=== PATIENT | female | born 1995 | race American Indian/Alaskan Native ===

== ENCOUNTER 2019-03-03 09:53 | Emergency (ER) | payer MEDICAID ==
[2019-03-03] MEDS ORDERED: DUONEB *Not for PRN Use IH ONE (09:58)
[2019-03-03 10:02] VITALS: BP 135/79
[2019-03-03] MEDS ORDERED: SOLU-Medrol IM ONE (10:19)
--- NOTE | 2019-03-03 10:21 | Emergency Department Report ---
ED Asthma HPI - General Chief Complaint: Dyspnea/Respdistress Stated Complaint: SOB/BACK PAIN Time Seen by Provider: 03/03/19 10:16 Source: patient Mode of arrival: Ambulatory Limitations: No Limitations - History of Present Illness Initial Comments: Patient is 23 years old female with history of asthma. Patient presented with shortness of breath, cough and wheezing since yesterday. Patient stated that she is out of her asthma medication since the last time she had asthma attack was 3 years ago. Patient stated that symptoms started with runny nose cough and congestion. Patient denied any fever or chills. No chest pain. MD Complaint: "asthma attack", shortness of breath, wheezing - Related Data Allergies Allergy/AdvReac Type Severity Reaction Status Date / Time No Known Allergies Allergy Verified 03/03/19 09:57 ED Review of Systems ROS: Stated complaint: SOB/BACK PAIN Other details as noted in HPI Comment: All other systems reviewed and negative Constitutional: denies: chills, fever ENT: congestion Respiratory: cough, shortness of breath, wheezing Cardiovascular: denies: chest pain Gastrointestinal: denies: nausea, vomiting ED Past Medical Hx - Past Medical History Previous Medical History?: Yes Hx Asthma: Yes - Surgical History Past Surgical History?: Yes Additional Surgical History: c section - Social History Smoking Status: Never Smoker Substance Use Type: None ED Physical Exam - General Limitations: No Limitations General appearance: alert, in no apparent distress - Head Head exam: Present: atraumatic, normocephalic, normal inspection - Eye Eye exam: Present: normal appearance - ENT ENT exam: Present: normal exam, normal orophraynx, mucous membranes moist - Neck Neck exam: Present: normal inspection - Respiratory Respiratory exam: Present: wheezes, rhonchi. Absent: respiratory distress, rales, stridor, chest wall tenderness, accessory muscle use, decreased breath sounds, prolonged expiratory - Cardiovascular Cardiovascular Exam: Present: normal heart sounds - GI/Abdominal GI/Abdominal exam: Present: soft. Absent: distended, tenderness, guarding, rebound, rigid - Extremities Exam Extremities exam: Present: normal inspection. Absent: pedal edema, calf tenderness - Neurological Exam Neurological exam: Present: alert, oriented X3, CN II-XII intact, normal gait, reflexes normal - Skin Skin exam: Present: warm, intact, normal color ED Course Vital Signs 03/03/19 10:00 Temperature 98.4 F Pulse Rate 111 H Respiratory 16 Rate Blood Pressure 135/79 [Left] O2 Sat by Pulse 98 Oximetry ED Medical Decision Making - Radiology Data Radiology results: report reviewed - Medical Decision Making Patient is 23 years old female with history of asthma. Patient presented with shortness of breath, cough and wheezing since yesterday. Patient stated that she is out of her asthma medication since the last time she had asthma attack was 3 years ago. Patient stated that symptoms started with runny nose cough and congestion. Patient denied any fever or chills. No chest pain. Patient received albuterol and Atrovent. She also received Solu-Medrol 125 mg IM. Patient's symptoms improved. Chest x-ray is unremarkable. Patient given a prescription for prednisone and albuterol inhaler and advised to follow-up with her primary care physician in the next 2-3 days and to return to the ER if symptoms are not improved. Critical care attestation.: If time is entered above; I have spent that time in minutes in the direct care of this critically ill patient, excluding procedure time. ED Disposition Clinical Impression: Asthma exacerbation Disposition: DC-01 TO HOME OR SELFCARE Is pt being admited?: No Condition: Stable Instructions: Asthma (ED) Referrals: [facility] [Provider Group] - 3-5 Days
--- NOTE | 2019-03-03 11:17 | XRay Report ---
CHEST 1 VIEW INDICATION / CLINICAL INFORMATION: cough. COMPARISON: None available. FINDINGS: SUPPORT DEVICES: None. HEART / MEDIASTINUM: No significant abnormality. LUNGS / PLEURA: No significant pulmonary or pleural abnormality. No pneumothorax. ADDITIONAL FINDINGS: No significant additional findings. IMPRESSION: No acute pulmonary or pleural abnormality Signer Name: Ham Nathan MD FACR Signed: 03/03/2019 11:12 AM Workstation Name: [email or web address]
== END 2019-03-03 11:35 | disposition home or self-care (01) ==
LOC: ED 09:53
DX: J45.901 Unspecified asthma with (acute) exacerbation (principal)
CPT/HCPCS: 71045; 94640; 96372; 99284; J2930